=== PATIENT | female | born 1980 | race Two or more races ===

== ENCOUNTER → 2020-01-05 08:54 | Outpatient (BNVA) | payer SELFPAY | PROVIDERS: Visit Provider Internal Medicine | DX: Z76.89 Persons encountering health services in other specified circumstances (principal) ==

== ENCOUNTER → 2020-12-19 13:10 | Outpatient (BNVA) | payer SELFPAY | PROVIDERS: Visit Provider Internal Medicine | DX: Z02.79 Encounter for issue of other medical certificate (principal) ==

== ENCOUNTER → 2022-01-02 11:15 | Outpatient (BNVA) | payer SELFPAY | PROVIDERS: Visit Provider Internal Medicine | DX: Z02.79 Encounter for issue of other medical certificate (principal) ==

== ENCOUNTER → 2023-01-13 10:02 | Outpatient (BNVA) | payer SELFPAY | PROVIDERS: Visit Provider Physician Assistant | DX: Z02.79 Encounter for issue of other medical certificate (principal) ==

== ENCOUNTER 2024-09-12 10:48 | Outpatient (AMB) | payer OTHER, SELFPAY ==
--- NOTE | 2024-09-12 10:49 | MHC.OFFVIS ---
Vital Signs 09/12/24 10:58 Height 5 ft 6 in Weight 261 lb BMI 42.1 BP 166/79 H Blood Pressure Location Rt brachial Position Sitting Pulse 82 Intake Visit Reasons: large neck lipoma Intake Note: Patient referred by pcp Dr. Salomón Robles for large lipoma on Lt side of neck. Present for 1yr. Patient c/o: on and off tenderness. No prior trauma. 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 She feels this has been present for many years starting as a small lump which has gradually increased in size and now become more noticeable. The lesion is located just above the hairline in the midline neck. She denies any significant pain, redness or discharge from the site. She does have some discomfort when moving her neck however possibly related to this lesion. She underwent evaluation with an ultrasound of the soft tissue, the results of which are not available at the time of this examination. She is requesting excision of this lesion. [facility] Medical History (Updated 09/12/24 @ 11:15 by Tom Hayes MD) Pilar cyst of scalp High blood pressure High cholesterol Surgical History (Updated 09/12/24 @ 10:57 by EDUARDO Jimenez) Hx laparoscopic cholecystectomy Social History (System 01/28/23 @ 14:50 by Seema Cano) Alcohol intake: current Alcohol intake frequency: holidays/special occasions only Patient Tobacco Use Status: Never used Tobacco Review of Systems Const All systems reviewed & are unremarkable except as noted in HPI and below Physical Exam Const General: cooperative and no acute distress Nutritional Appearance: well nourished Orientation/consciousness: patient oriented x3 Limitations: no limitations HEENT Head: Yes normocephalic and Yes atraumatic Ears: hearing grossly normal bilaterally Neck Neck images: 1. Large round approximately 8 cm diameter, firm to the touch more suggestive of a Pilar cyst rather than a lipoma. No overlying skin changes appreciated. Lesion is mobile within the subcutaneous tissue. Resp Effort & Inspection: normal respiratory effort, no audible wheezes, no cough and no respiratory distress Cardio Jugular venous distension: no JVD GI Inspection: Yes normal to inspection Skin Other: Warm, dry, no rash Neuro General: patient oriented x3 Extrem General: Yes no clubbing, cyanosis or edema Assessment & Plan Assessment & Plan (1) Pilar cyst of scalp: Code(s): L72.11 - Pilar cyst Category: Medical Plan 44-year-old female patient presenting with a mass in the posterior neck which on examination appears to be a Pilar cyst. I recommended an excision of this Pilar cyst as a minor surgery under local anesthesia. After discussion of the procedure, risks, and alternatives, she consents to the excision. She will be scheduled earliest convenience. Coding Level of Care Code New Pt Level 4 (61180) Diagnoses Pilar cyst of scalp L72.11
[2024-09-12 10:58] VITALS: BP 166/79; PULSE 82; BMI 42.1
--- OUTSIDE RECORDS SUMMARY | 2024-09-12 12:16 | XMS_ITS | Patient Health Record ---
Author Organization [employer] [facility] Address [address] [place] [address] Care Team Providers Care Fire Control Technician B Name Role Phone LINCOLN SANDRA Primary Care Provider Margaret Lorenzana Unavailable [phone] Ema Dixon Unavailable [phone] Allergies No Known Allergies Results Component Value Reference Range Notes Comp. Metabolic Panel [id number] Reviewed date:08/02/2024 07:32:09 AM Interpretation: Performing Lab:[facility], [address] [facility], Phone - [phone], Director - MDJodry Notes/Report: Glucose 93 70-99 mg/dL BUN 17 6-24 mg/dL Creatinine 0.54 0.57-1.00 mg/dL eGFR 116 >59 mL/min/1.73 BUN/Creatinine Ratio 31 9-23 Sodium 140 134-144 mmol/L Potassium 4.6 3.5-5.2 mmol/L Chloride 102 96-106 mmol/L Carbon Dioxide, Total 19 20-29 mmol/L Calcium 9.5 8.7-10.2 mg/dL Protein, Total 6.7 6.0-8.5 g/dL Albumin 4.3 3.9-4.9 g/dL Globulin, Total 2.4 1.5-4.5 g/dL Bilirubin, Total 0.7 0.0-1.2 mg/dL Alkaline Phosphatase 135 44-121 IU/L AST (SGOT) 60 0-40 IU/L Lipid Panel With LDL/HDL Rat [id number] Reviewed date:08/02/2024 07:31:47 AM Interpretation: Performing Lab:[facility], [address], [place], Phone - [phone], Director - MDJodry Notes/Report: Cholesterol, Total 298 100-199 mg/dL Triglycerides 413 0-149 mg/dL HDL Cholesterol 41 >39 mg/dL VLDL Cholesterol Michael 82 5-40 mg/dL LDL Chol Calc ([facility]) 175 0-99 mg/dL LDL Calc Comment: Consider evaluating for Familial Hypercholesterolemia(FH), if clinically indicated. LDL/HDL Ratio 4.3 0.0-3.2 ratio LDL/HDL Ratio Men Women 1/2 Avg.Risk 1.0 1.5 Avg.Risk 3.6 3.2 2X Avg.Risk 6.2 5.0 3X Avg.Risk 8.0 6.1 Albumin/Creatinine Ratio,Uri [id number] Reviewed date:08/02/2024 07:32:03 AM Interpretation: Performing Lab:[facility], [address] [place] [address], [place], Phone - [phone], Director - MDJodry Notes/Report: Creatinine, Urine 229.9 Not Estab. mg/dL Albumin, Urine 25.8 Not Estab. ug/mL Alb/Creat Ratio 11 0-29 mg/g creat Normal: 0 - 29 Moderately increased: 30 - 300 Severely increased: >300 CBC with Diff, Platelet, NLR [id number] Reviewed date:08/02/2024 07:31:54 AM Interpretation: Performing Lab:[facility], [address] [facility], [place], Phone - [phone], Director - MDJoy Notes/Report: WBC 6.2 3.4-10.8 x10E3/uL RBC 4.27 3.77-5.28 x10E6/uL Hemoglobin 13.0 11.1-15.9 g/dL Hematocrit 39.7 34.0-46.6 % MCV 93 79-97 fL MCH 30.4 26.6-33.0 pg MCHC 32.7 31.5-35.7 g/dL RDW 13.3 11.7-15.4 % Platelets 409 150-450 x10E3/uL Neutrophils 50 Not Estab. % Lymphs 38 Not Estab. % Monocytes 10 Not Estab. % Eos 1 Not Estab. % Basos 1 Not Estab. % Neutrophils (Absolute) 3.1 1.4-7.0 x10E3/uL Lymphs (Absolute) 2.4 0.7-3.1 x10E3/uL Neut/Lymph Ratio 1.3 0.0-2.9 ratio Published COVID-19 studies suggest: Low likelihood of severe COVID-19 disease progression 0.0-2.9 High likelihood of severe COVID-19 disease progression >4.9 Monocytes(Absolute) 0.6 0.1-0.9 x10E3/uL Eos (Absolute) 0.1 0.0-0.4 x10E3/uL Baso (Absolute) 0.1 0.0-0.2 x10E3/uL Immature Granulocytes 0 Not Estab. % Immature Grans (Abs) 0.0 0.0-0.1 x10E3/uL Reason For Referral Reason Pap smear screening, premenopausal symptoms Please evaluate and treat Diagnosis 1 Unspecified abnormal cytological findings in specimens from cervix uteri (R87.619) Diagnosis 2 Unspecified menopaus al and perimenopausal disorder (N95.9) Referral Organization [facility] Referring Provider First Name Margaret Referring Provider Last Name Salomón Referring Provider Speciality [facility] Referred Provider Specialty Data Transcriber General Notes Please call the farooq ent to schedule the appointment, [facility] General Accounting Clerk- [phone] Charmain 08/07/2024 04:22:45 PM > Referral Priority Routine Reason large neck lipoma Please evaluate and treat Diagnosis 1 Localized swelling, mass and lump, neck (R22.1) Referral Organization [facility] Referring Provider First Name Margaret Referring Provider Last Name Salomón Referring Provider Speciality Internal edicine Referred Provider Specialty Surgery General Notes Please call the farooq ent to schedule the appointment, [facility] General Surgery. Please contact them at [phone], Kanwal Ramirez 08/07/2024 04:16:02 PM > Referral Priority Routine Reason snoring and daytime fatigue Diagnosis 1 Snoring (R06.83) Diagnosis 2 Somnolence (R40.0) Referral Organization [facility] Referring Provider First Name LINCOLN Referring Provider Last Name JOCY Referring Provider Speciality Internal edicine Referred Provider Specialty Sleep Medici ne General Notes Please call the farooq ent to schedule the appointment, [facility]. Please contact them at [phone] Charmain 08/17/2024 04:38:30 PM > Referral Priority Routine Medications Medication SIG (Take, Route, Frequency, Duration) Notes Start Date End Date Status amLODIPine Besylate 2.5 MG 1 tablet Oral ly Once a day for 30 days 08/17/2024 Active Atorvastatin Calcium 20 MG 1 tablet Oral ly Once a day for 30 days 08/01/2024 Active Problems Problem Type SNOMED Code ICD Code Onset Dates Problem Status W/U Status Risk Notes Problem Morbid obesity (disorder) (008124795) Morbid (severe) obesity due to excess calories (E66.01) Active confirmed Problem Mixed hyperlipidemia (364725236) Mixed hyperlipidemia (E78.2) Active confirmed Problem Hyperlipidemia (58829359) Hyperlipidemia, unspecified (E78.5) Active confirmed Problem Fatty liver (940392698) Fatty (change of) liver, not elsewhere classified (K76.0) Active confirmed Problem Unspecified menopausal and perimenopausal disorder (N95.9) Active confirmed Problem Somnolence (21381826) Somnolence (R40.0) Active confirmed Problem Essential hypertension (08567484) HTN (hypertension), benign (I10) Active confirmed Vital Signs Heart Rate 98 /min 08/17/2024 Temperature 96.5 degrees Fahrenheit 08/17/2024 Oximetry 97 % 08/17/2024 Blood pressure diastolic 100 mm Hg 08/17/2024 Height 5'6'' in 08/17/2024 Blood pressure systolic 140 mm Hg 08/17/2024 Weight 262.4 lbs 08/17/2024 BMI 42.35 kg/m2 08/17/2024 Encounters Encounter Location Date Provider Diagnosis [address] [address] 07/31/2024 [place] Hyperlipidemia, unspecified E78.5 ; HTN (hypertension), benign I10 ; Localized swelling, mass and lump, neck R22.1 and Chest pain on breathing R07.[address] [address] 08/17/2024 [facility] TANISHACharlie Morbid (severe) obes ity due to excess calories E66.01 ; Dietary counseling and surveillance Z71.3 ; Mixed hyperlipidemia E78.2 ; Fatty (change of) liver, not elsewhere classified K76.0 ; HTN (hypertension), benign I10 and Strain of muscle, fascia and tendon of lower back, initial encounter S39.012A [address] [place] [address] 08/01/2024 LINCOLN SANDRA Hyperlipidemia, unspecified E78.[address] [place] [address] 08/11/[address] [address] [place] [address] 08/11/[address] [place] [address] 08/18/[address] [address] 08/24/2024 [place] Alam [address] [address] 08/25/2024 Ema Dixon [address] [address] 08/28/2024 [place] Chest pain on breath ing R07.1 and Shortness of breath R06.[address] [address] 09/06/2024 LINCOLN SANDRA Assessments Encounter Date Diagnosis (ICD Code) Assessment Notes Treatment Notes Treatment Clinical Notes Section Notes 08/01/2024 Hyperlipidemia, unspecified (ICD-10 - E78.5) 08/17/2024 Morbid (severe) obesity due to excess calories (ICD-10 - E66.01) Isabel is 44 years old lady who is here for medical weight management. We reviewed her blood work and she has mixed hyperlipidemia, elevated AST. Her blood pressure was also high in the office today. She also mentioned that she snores at night and complained of daytime sleepiness. Hypertension. Blood pressure running high in the office and she started on amlodipine 2.5 mg daily and a low sodium diet recommended. Mixed hyperlipidemia. Advised to take atorvastatin 20 mg daily at bedtime and repeat lipid panel in 6-12 weeks. Snoring. She scored 5 on [employer] sleep apnea screening tool. She is given referral to sleep medicine. Complications of sleep apnea discussed with the patient. Diet recommendation. Different dietary modalities discussed with the patient. She was advised to restrict her calories to less than 1500 kcal in 24 hours. Portion control recommended. Low glycemic index foods explained and education material given. Information on Numetra discussed. Mediterranean diet, keto diet, low carbohydrate diet explained and discussed with the patient. Patient advised to download applications for calorie counting. Patient was also advised to use [id number] vitamin D3 supplements and multivitamins. Pharmacotherapy. Patient will discuss with her insurance company regarding pharmacotherapy before re-proceed. Different medications and their side effects discussed with the patient. She will benefit from pharmacotherapy especially GLP-1 considering history of new onset hypertension Exercise. Patient encouraged to To do regular exercise. Encouraged to do aerobic and anaerobic exercises at least 3-4 days a week. Goal is to burn at least 250-500 in One session Behavioral therapy. Importance of behavioral health and weight management discussed with the patient. CBT and motivational interviewing will benefit the patient. If needed will do a referral to a psychologist/psych iatrist. Bariatric surgery. Different procedures discussed with the patient but patient is not interested at this point Screening blood work reviewed Assessed. The patient was assessed and patient does not have any behavioral risk or factors affecting goals of therapy Advised. Patient was given a personalized plan regarding the goals and pros and cons of the treatment Agreed. Collaboratively picked up a treatment plan and patient agreed with the plan Assisted. Patient is assisted in achieving goals. Arrange. Schedule follow-up with the patient to provide ongoing assistance and support and to review the management and treatment plan. Counseling. A total of 60 minutes spent with the patient and more than 50% of time was spent with the patient counseling and educating on different diets, side effects of different medications, pros and cons of medical and surgical weight management, importance of exercise and weight loss and psych intervention for weight loss. 07/31/2024 Hyperlipidemia, unspecified (ICD-10 - E78.5) 44-year-old lady with no known medical history, obesity is here today to establish a new PCP. Hypertension screening will check basic metabolic panel she is not on any medication blood pressure is 124/84 Hyperlipidemia screening check a lipid profile Obesity class III, patient gained almost 60 pounds in the last year, we will check lab work, will make an appointment for weight loss and medication review/weight management Pleuritic chest pain, patient reports mostly back pain while taking a deep breath. She had a chest x-ray a few months ago which was unremarkable. Will get a CT of the chest to rule out any infiltrate or pleural effusion. Premenopausal symptoms, was referred to OPERATIONS RESEARCH MANAGER for further evaluation and also to get a Pap smear check Neck mass large 4-5 cm palpable mass in the base of the left side of the neck nontender most likely lipoma will get an ultrasound and referred to a surgeon as patient reports it is causing discomfort 08/17/2024 Dietary counseling and surveillance (ICD-10 - Z71.3) Isabel is 44 years old lady who is here for medical weight management. We reviewed her blood work and she has mixed hyperlipidemia, elevated AST. Her blood pressure was also high in the office today. She also mentioned that she snores at night and complained of daytime sleepiness. Hypertension. Blood pressure running high in the office and she started on amlodipine 2.5 mg daily and a low sodium diet recommended. Mixed hyperlipidemia. Advised to take atorvastatin 20 mg daily at bedtime and repeat lipid panel in 6-12 weeks. Snoring. She scored 5 on [employer] sleep apnea screening tool. She is given referral to sleep medicine. Complications of sleep apnea discussed with the patient. Diet recommendation. Different dietary modalities discussed with the patient. She was advised to restrict her calories to less than 1500 kcal in 24 hours. Portion control recommended. Low glycemic index foods explained and education material given. Information on Numetra discussed. Mediterranean diet, keto diet, low carbohydrate diet explained and discussed with the patient. Patient advised to download applications for calorie counting. Patient was also advised to use [id number]-[id number] vitamin D3 supplements and multivitamins. Pharmacotherapy. Patient will discuss with her insurance company regarding pharmacotherapy before re-proceed. Different medications and their side effects discussed with the patient. She will benefit from pharmacotherapy especially GLP-1 considering history of new onset hypertension Exercise. Patient encouraged to To do regular exercise. Encouraged to do aerobic and anaerobic exercises at least 3-4 days a week. Goal is to burn at least 250-500 in One session Behavioral therapy. Importance of behavioral health and weight management discussed with the patient. CBT and motivational interviewing will benefit the patient. If needed will do a referral to a psychologist/psych iatrist. Bariatric surgery. Different procedures discussed with the patient but patient is not interested at this point Screening blood work reviewed Assessed. The patient was assessed and patient does not have any behavioral risk or factors affecting goals of therapy Advised. Patient was given a personalized plan regarding the goals and pros and cons of the treatment Agreed. Collaboratively picked up a treatment plan and patient agreed with the plan Assisted. Patient is assisted in achieving goals. Arrange. Schedule follow-up with the patient to provide ongoing assistance and support and to review the management and treatment plan. Counseling. A total of 60 minutes spent with the patient and more than 50% of time was spent with the patient counseling and educating on different diets, side effects of different medications, pros and cons of medical and surgical weight management, importance of exercise and weight loss and psych intervention for weight loss. 08/28/2024 Chest pain on breathing (ICD-10 - R07.1) 08/28/2024 Shortness of breath (ICD-10 - R06.02) 07/31/2024 HTN (hypertension), benign (ICD-10 - I10) 44-year-old lady with no known medical history, obesity is here today to establish a new PCP. Hypertension screening will check basic metabolic panel she is not on any medication blood pressure is 124/84 Hyperlipidemia screening check a lipid profile Obesity class III, patient gained almost 60 pounds in the last year, we will check lab work, will make an appointment for weight loss and medication review/weight management Pleuritic chest pain, patient reports mostly back pain while taking a deep breath. She had a chest x-ray a few months ago which was unremarkable. Will get a CT of the chest to rule out any infiltrate or pleural effusion. Premenopausal symptoms, was referred to OPERATIONS RESEARCH MANAGER for further evaluation and also to get a Pap smear check Neck mass large 4-5 cm palpable mass in the base of the left side of the neck nontender most likely lipoma will get an ultrasound and referred to a surgeon as patient reports it is causing discomfort 08/17/2024 Mixed hyperlipidemia (ICD-10 - E78.2) Isabel is 44 years old lady who is here for medical weight management. We reviewed her blood work and she has mixed hyperlipidemia, elevated AST. Her blood pressure was also high in the office today. She also mentioned that she snores at night and complained of daytime sleepiness. Hypertension. Blood pressure running high in the office and she started on amlodipine 2.5 mg daily and a low sodium diet recommended. Mixed hyperlipidemia. Advised to take atorvastatin 20 mg daily at bedtime and repeat lipid panel in 6-12 weeks. Snoring. She scored 5 on [employer] sleep apnea screening tool. She is given referral to sleep medicine. Complications of sleep apnea discussed with the patient. Diet recommendation. Different dietary modalities discussed with the patient. She was advised to restrict her calories to less than 1500 kcal in 24 hours. Portion control recommended. Low glycemic index foods explained and education material given. Information on Numetra discussed. Mediterranean diet, keto diet, low carbohydrate diet explained and discussed with the patient. Patient advised to download applications for calorie counting. Patient was also advised to use tfiq-onr-[id number] vitamin D3 supplements and multivitamins. Pharmacotherapy. Patient will discuss with her insurance company regarding pharmacotherapy before re-proceed. Different medications and their side effects discussed with the patient. She will benefit from pharmacotherapy especially GLP-1 considering history of new onset hypertension Exercise. Patient encouraged to To do regular exercise. Encouraged to do aerobic and anaerobic exercises at least 3-4 days a week. Goal is to burn at least 250-500 in One session Behavioral therapy. Importance of behavioral health and weight management discussed with the patient. CBT and motivational interviewing will benefit the patient. If needed will do a referral to a psychologist/psych iatrist. Bariatric surgery. Different procedures discussed with the patient but patient is not interested at this point Screening blood work reviewed Assessed. The patient was assessed and patient does not have any behavioral risk or factors affecting goals of therapy Advised. Patient was given a personalized plan regarding the goals and pros and cons of the treatment Agreed. Collaboratively picked up a treatment plan and patient agreed with the plan Assisted. Patient is assisted in achieving goals. Arrange. Schedule follow-up with the patient to provide ongoing assistance and support and to review the management and treatment plan. Counseling. A total of 60 minutes spent with the patient and more than 50% of time was spent with the patient counseling and educating on different diets, side effects of different medications, pros and cons of medical and surgical weight management, importance of exercise and weight loss and psych intervention for weight loss. 08/17/2024 Fatty (change of) liver, not elsewhere classified (ICD-10 - K76.0) Isabel is 44 years old lady who is here for medical weight management. We reviewed her blood work and she has mixed hyperlipidemia, elevated AST. Her blood pressure was also high in the office today. She also mentioned that she snores at night and complained of daytime sleepiness. Hypertension. Blood pressure running high in the office and she started on amlodipine 2.5 mg daily and a low sodium diet recommended. Mixed hyperlipidemia. Advised to take atorvastatin 20 mg daily at bedtime and repeat lipid panel in 6-12 weeks. Snoring. She scored 5 on [employer] sleep apnea screening tool. She is given referral to sleep medicine. Complications of sleep apnea discussed with the patient. Diet recommendation. Different dietary modalities discussed with the patient. She was advised to restrict her calories to less than 1500 kcal in 24 hours. Portion control recommended. Low glycemic index foods explained and education material given. Information on Numetra discussed. Mediterranean diet, keto diet, low carbohydrate diet explained and discussed with the patient. Patient advised to download applications for calorie counting. Patient was also advised to use zjmh-sux-dlietsb vitamin D3 supplements and multivitamins. Pharmacotherapy. Patient will discuss with her insurance company regarding pharmacotherapy before re-proceed. Different medications and their side effects discussed with the patient. She will benefit from pharmacotherapy especially GLP-1 considering history of new onset hypertension Exercise. Patient encouraged to To do regular exercise. Encouraged to do aerobic and anaerobic exercises at least 3-4 days a week. Goal is to burn at least 250-500 in One session Behavioral therapy. Importance of behavioral health and weight management discussed with the patient. CBT and motivational interviewing will benefit the patient. If needed will do a referral to a psychologist/psych iatrist. Bariatric surgery. Different procedures discussed with the patient but patient is not interested at this point Screening blood work reviewed Assessed. The patient was assessed and patient does not have any behavioral risk or factors affecting goals of therapy Advised. Patient was given a personalized plan regarding the goals and pros and cons of the treatment Agreed. Collaboratively picked up a treatment plan and patient agreed with the plan Assisted. Patient is assisted in achieving goals. Arrange. Schedule follow-up with the patient to provide ongoing assistance and support and to review the management and treatment plan. Counseling. A total of 60 minutes spent with the patient and more than 50% of time was spent with the patient counseling and educating on different diets, side effects of different medications, pros and cons of medical and surgical weight management, importance of exercise and weight loss and psych intervention for weight loss. 07/31/2024 Localized swelling, mass and lump, neck (ICD-10 - R22.1) 44-year-old lady with no known medical history, obesity is here today to establish a new PCP. Hypertension screening will check basic metabolic panel she is not on any medication blood pressure is 124/84 Hyperlipidemia screening check a lipid profile Obesity class III, patient gained almost 60 pounds in the last year, we will check lab work, will make an appointment for weight loss and medication review/weight management Pleuritic chest pain, patient reports mostly back pain while taking a deep breath. She had a chest x-ray a few months ago which was unremarkable. Will get a CT of the chest to rule out any infiltrate or pleural effusion. Premenopausal symptoms, was referred to OPERATIONS RESEARCH MANAGER for further evaluation and also to get a Pap smear check Neck mass large 4-5 cm palpable mass in the base of the left side of the neck nontender most likely lipoma will get an ultrasound and referred to a surgeon as patient reports it is causing discomfort 07/31/2024 Chest pain on breathing (ICD-10 - R07.1) 44-year-old lady with no known medical history, obesity is here today to establish a new PCP. Hypertension screening will check basic metabolic panel she is not on any medication blood pressure is 124/84 Hyperlipidemia screening check a lipid profile Obesity class III, patient gained almost 60 pounds in the last year, we will check lab work, will make an appointment for weight loss and medication review/weight management Pleuritic chest pain, patient reports mostly back pain while taking a deep breath. She had a chest x-ray a few months ago which was unremarkable. Will get a CT of the chest to rule out any infiltrate or pleural effusion. Premenopausal symptoms, was referred to OPERATIONS RESEARCH MANAGER for further evaluation and also to get a Pap smear check Neck mass large 4-5 cm palpable mass in the base of the left side of the neck nontender most likely lipoma will get an ultrasound and referred to a surgeon as patient reports it is causing discomfort 08/17/2024 HTN (hypertension), benign (ICD-10 - I10) Isabel is 44 years old lady who is here for medical weight management. We reviewed her blood work and she has mixed hyperlipidemia, elevated AST. Her blood pressure was also high in the office today. She also mentioned that she snores at night and complained of daytime sleepiness. Hypertension. Blood pressure running high in the office and she started on amlodipine 2.5 mg daily and a low sodium diet recommended. Mixed hyperlipidemia. Advised to take atorvastatin 20 mg daily at bedtime and repeat lipid panel in 6-12 weeks. Snoring. She scored 5 on [employer] sleep apnea screening tool. She is given referral to sleep medicine. Complications of sleep apnea discussed with the patient. Diet recommendation. Different dietary modalities discussed with the patient. She was advised to restrict her calories to less than 1500 kcal in 24 hours. Portion control recommended. Low glycemic index foods explained and education material given. Information on Numetra discussed. Mediterranean diet, keto diet, low carbohydrate diet explained and discussed with the patient. Patient advised to download applications for calorie counting. Patient was also advised to use [id number] vitamin D3 supplements and multivitamins. Pharmacotherapy. Patient will discuss with her insurance company regarding pharmacotherapy before re-proceed. Different medications and their side effects discussed with the patient. She will benefit from pharmacotherapy especially GLP-1 considering history of new onset hypertension Exercise. Patient encouraged to To do regular exercise. Encouraged to do aerobic and anaerobic exercises at least 3-4 days a week. Goal is to burn at least 250-500 in One session Behavioral therapy. Importance of behavioral health and weight management discussed with the patient. CBT and motivational interviewing will benefit the patient. If needed will do a referral to a psychologist/psych iatrist. Bariatric surgery. Different procedures discussed with the patient but patient is not interested at this point Screening blood work reviewed Assessed. The patient was assessed and patient does not have any behavioral risk or factors affecting goals of therapy Advised. Patient was given a personalized plan regarding the goals and pros and cons of the treatment Agreed. Collaboratively picked up a treatment plan and patient agreed with the plan Assisted. Patient is assisted in achieving goals. Arrange. Schedule follow-up with the patient to provide ongoing assistance and support and to review the management and treatment plan. Counseling. A total of 60 minutes spent with the patient and more than 50% of time was spent with the patient counseling and educating on different diets, side effects of different medications, pros and cons of medical and surgical weight management, importance of exercise and weight loss and psych intervention for weight loss. 08/17/2024 Strain of muscle, fascia and tendon of lower back, initial encounter (ICD-10 - S39.012A) Isabel is 44 years old lady who is here for medical weight management. We reviewed her blood work and she has mixed hyperlipidemia, elevated AST. Her blood pressure was also high in the office today. She also mentioned that she snores at night and complained of daytime sleepiness. Hypertension. Blood pressure running high in the office and she started on amlodipine 2.5 mg daily and a low sodium diet recommended. Mixed hyperlipidemia. Advised to take atorvastatin 20 mg daily at bedtime and repeat lipid panel in 6-12 weeks. Snoring. She scored 5 on [employer] sleep apnea screening tool. She is given referral to sleep medicine. Complications of sleep apnea discussed with the patient. Diet recommendation. Different dietary modalities discussed with the patient. She was advised to restrict her calories to less than 1500 kcal in 24 hours. Portion control recommended. Low glycemic index foods explained and education material given. Information on Numetra discussed. Mediterranean diet, keto diet, low carbohydrate diet explained and discussed with the patient. Patient advised to download applications for calorie counting. Patient was also advised to use [id number] vitamin D3 supplements and multivitamins. Pharmacotherapy. Patient will discuss with her insurance company regarding pharmacotherapy before re-proceed. Different medications and their side effects discussed with the patient. She will benefit from pharmacotherapy especially GLP-1 considering history of new onset hypertension Exercise. Patient encouraged to To do regular exercise. Encouraged to do aerobic and anaerobic exercises at least 3-4 days a week. Goal is to burn at least 250-500 in One session Behavioral therapy. Importance of behavioral health and weight management discussed with the patient. CBT and motivational interviewing will benefit the patient. If needed will do a referral to a psychologist/psych iatrist. Bariatric surgery. Different procedures discussed with the patient but patient is not interested at this point Screening blood work reviewed Assessed. The patient was assessed and patient does not have any behavioral risk or factors affecting goals of therapy Advised. Patient was given a personalized plan regarding the goals and pros and cons of the treatment Agreed. Collaboratively picked up a treatment plan and patient agreed with the plan Assisted. Patient is assisted in achieving goals. Arrange. Schedule follow-up with the patient to provide ongoing assistance and support and to review the management and treatment plan. Counseling. A total of 60 minutes spent with the patient and more than 50% of time was spent with the patient counseling and educating on different diets, side effects of different medications, pros and cons of medical and surgical weight management, importance of exercise and weight loss and psych intervention for weight loss. Plan Of Treatment Pending Test Test Name Order Date X ray : Chest 08/28/2024 X ray : Thoracic and lumbar 08/17/2024 CT Chest WO 07/31/2024 US Soft Tissue Head Neck 07/31/2024 Next Appt Details Provider Name:Ema Fuentesmisty sawyer, 09/22/2024 01:00:00 PM, [address] [address], [place], [address], Provider Name:LINCOLN SANDRA , 09/28/2024 01:45:00 PM, [address] [place] [address] [id number], [place], [address], Insurance Providers Payer Name Payer Address Payer Phone Subscriber Number Group Number Insured Name Patient Relationship to Insured Coverage Start Date Coverage End [facility] [address] [place] [phone] [id number] Isabel Ray Self - patient is the insured Medical (General) History Medical History History ICD Code none Surgical History Surgery Date(Month/Year) status post cholecystectomy
== END 2024-09-12 11:19 | disposition home or self-care (01) ==
LOC: HO.HGS 10:49
PROVIDERS: PCP Internal Medicine; Visit Provider Surgery
DX: L72.11 Pilar cyst (principal)
CPT/HCPCS: 99204

== ENCOUNTER 2024-09-26 11:25 | Outpatient (REF) | payer OTHER, SELFPAY ==
[2024-09-26 11:33] VITALS: BP 154/77; PULSE 75; RESP 20; O2SAT 97
[2024-09-26 12:06] VITALS: BP 154/94; PULSE 82; RESP 20; O2SAT 97
--- NOTE | 2024-09-26 12:21 | W.PM.OPN ---
Operative Note Operative Note Date of Service: 09/26/24 Narrative: Preoperative diagnosis: Pilar cyst posterior neck Postoperative diagnosis: Epidermal inclusion cyst posterior neck Procedure: Excision of epidermal inclusion cyst posterior neck Surgeon: Tom Hayes MD Senior Research Project Manager: None Anesthesia: Lidocaine 1% with epinephrine Indications for procedure: 44-year-old female patient presenting with an enlarging cyst in the posterior neck measuring approximately 3.5 cm in diameter. She denies any previous history of infection or discharge Operative findings: 3.5 cm sebaceous cyst posterior neck at the hairline Specimen: Sebaceous cyst posterior neck Estimated blood loss: 2 mL Complications: None Procedure details: Patient was brought to the minor surgery suite and placed in a prone position. The site of surgery was confirmed by the patient in the posterior neck. After assuring informed consent the skin was prepped with Betadine and draped in a sterile fashion. Local anesthesia was then infiltrated circumferentially around the sebaceous cyst. An elliptical incision was then created include a central punctum and carried into the subcutaneous tissue. Sharp dissection with a Metzenbaum scissors was then used to dissect the cyst from the surrounding subcutaneous tissue. The cyst was completely excised and passed off the table. This was then sent to pathology for further examination. Light pressure was held to maintain hemostasis. Skin was then closed using interrupted 3-0 Prolene sutures. Bacitracin was then applied. The patient tolerated the procedure well. She was discharged to home in stable condition.
--- OUTSIDE RECORDS SUMMARY | 2024-09-26 12:40 | XMS_ITS | Patient Health Record ---
Author Organization [facility] Address [address] [place] [address] Care Team Providers Care Varnish Finisher Name Role Phone LINCOLN SANDRA Primary Care Provider [phone] Margaret Lorenzana Unavailable [phone] Ema Dixon Unavailable [phone] Allergies No Known Allergies Results Component Value Reference Range Notes Comp. Metabolic Panel [id number] Reviewed date:08/02/2024 07:32:09 AM Interpretation: Performing Lab:[facility], [address] [facility], Phone - [phone], Director - MDJodry Notes/Report: Glucose 93 70-99 [...] 0-40 IU/L Lipid Panel With LDL/HDL Rat [id number] Reviewed date:08/02/2024 07:31:47 AM Interpretation: Performing Lab:[facility], [address] [place], [place], Phone - [phone], Director - MDJodry Notes/Report: Cholesterol, Total 298 100-199 mg/dL Triglycerides 413 0-149 mg/dL HDL Cholesterol 41 >39 mg/dL VLDL Cholesterol Michael 82 5-40 mg/dL LDL Chol Calc ([facility]) 175 0-99 mg/dL LDL Calc Comment: Consider evaluating for Familial Hypercholesterolemia(FH), if clinically indicated. LDL/HDL Ratio 4.3 0.0-3.2 ratio LDL/HDL Ratio Men Women 1/2 Avg.Risk 1.0 1.5 Avg.Risk 3.6 3.2 2X Avg.Risk 6.2 5.0 3X Avg.Risk 8.0 6.1 Albumin/Creatinine Ratio,Uri [id number] Reviewed date:08/02/2024 07:32:03 AM Interpretation: Performing Lab:[facility], [address] [place] [address], [place], Phone - [phone], Director - MDJodry Notes/Report: Creatinine, Urine 229.9 Not Estab. mg/dL Albumin, Urine 25.8 Not Estab. ug/mL Alb/Creat Ratio 11 0-29 mg/g creat Normal: 0 - 29 Moderately increased: 30 - 300 Severely increased: >300 CBC with Diff, Platelet, NLR [id number] Reviewed date:08/02/2024 07:31:54 AM Interpretation: Performing Lab:[facility], [address] [facility], [place], Phone - [phone], Director - MDJoy Notes/Report: WBC 6.2 3.4-10.8 [...] al and perimenopausal disorder (N95.9) Referral Organization [facility] Referring Provider First Name Margaret Referring Provider Last Name Salomón Referring Provider [facility]ity [facility] Referred Provider Specialty Public Relations Supervisor General Notes Please call the farooq ent to schedule the appointment, [facility] [employer]orer- [phone] Charmain 08/07/2024 04:22:45 PM > Referral Priority Routine Reason large neck lipoma Please evaluate and treat Diagnosis 1 Localized swelling, mass and lump, neck (R22.1) Referral Organization [facility] Referring Provider First Name Margaret Referring Provider Last Name Salomón Referring Provider Speciality Internal edicine Referred Provider Specialty Surgery General Notes Please call the farooq ent to schedule the appointment, [facility] General Surgery. Please contact them at [phone], Kanwal Ramirez 08/07/2024 04:16:02 PM > Referral Priority Routine Reason snoring and daytime fatigue Diagnosis 1 Snoring (R06.83) Diagnosis 2 Somnolence (R40.0) Referral Organization [facility] Referring Provider First Name LINCOLN Referring Provider Last Name JOCY Referring Provider Speciality Internal edicine Referred Provider Specialty Sleep Medici ne General Notes Please call the farooq ent to schedule the appointment, [facility]. Please contact them at [phone] Charmain 08/17/2024 04:38:30 PM > Referral Priority Routine Reason STOP BANG of 5, Epwo rth score of 12 Please evaluate and treat Diagnosis 1 Fatigue, unspecified type (R53.83) Referral Organization [facility] Referring Provider First Name Ema Referring Provider Last Name Destiny Referred Provider Specialty Sleep Medici ne General Notes Please call the farooq ent to schedule the appointment, Encounter created and SMS sent to the pt.JamesSengin 09/25/2024 04:02:41 PM > Referral Priority Routine Medications Medication SIG (Take, Route, Frequency, Duration) Notes Start Date End Date Status Ezetimibe 10 MG 1 tablet Orally Once a day; Duration: 90 days 09/22/2024 Active Atorvastatin Calcium 20 MG 1 tablet Oral ly Once a day; Duration: 30 days 08/01/2024 Active amLODIPine Besylate 2.5 MG 1 tablet Oral ly Once a day; Duration: 30 days 08/17/2024 Active Problems Problem Type SNOMED Code ICD Code Onset Dates Problem Status W/U Status Risk Notes Problem Morbid obesity (disorder) (774180893) Morbid (severe) obesity due to excess calories (E66.01) Active confirmed Problem Mixed hyperlipidemia (906143799) Mixed hyperlipidemia (E78.2) Active confirmed Problem Hyperlipidemia (37855142) Hyperlipidemia, unspecified (E78.5) Active confirmed Problem Fatty liver (832847678) Fatty (change of) liver, not elsewhere classified (K76.0) Active confirmed Problem Unspecified menopausal and perimenopausal disorder (N95.9) Active confirmed Problem Somnolence (73341513) Somnolence (R40.0) Active confirmed Problem Essential hypertension (41986559) HTN (hypertension), benign (I10) Active confirmed Vital Signs Heart Rate 91 /min 09/22/2024 Temperature 96.0 degrees Fahrenheit 09/22/2024 Oximetry 96 % 09/22/2024 Blood pressure diastolic 70 mm Hg 09/22/2024 Height 5'6'' in 09/22/2024 Blood pressure systolic 120 mm Hg 09/22/2024 Weight 256.5 lbs 09/22/2024 BMI 41.4 kg/m2 09/22/2024 Encounters Encounter Location Date Provider Diagnosis [facility] [address] [place] [address] 09/22/2024 Ema Dixon Hyperlipidemia, unspecified E78.5 ; Annual visit for general adult medical examination without abnormal findings Z00.00 ; Elevation of levels of liver transaminase levels R74.01 ; HTN (hypertension), benign I10 ; Fatigue, unspecified type R53.83 and Encounter for screening mammogram for malignant neoplasm of breast Z12.[address] [place] [address] 07/31/2024 [place] Alam Hyperlipidemia, unspecified E78.5 ; HTN (hypertension), benign I10 ; Localized swelling, mass and lump, neck R22.1 and Chest pain on breathing R07.[address] [place] [address] 08/17/2024 STARK GUL Morbid (severe) obes ity due to excess calories E66.01 ; Dietary counseling and surveillance Z71.3 ; Mixed hyperlipidemia E78.2 ; Fatty (change of) liver, not elsewhere classified K76.0 ; HTN (hypertension), benign I10 and Strain of muscle, fascia and tendon of lower back, initial encounter S39.012A [address] [place] [address] 08/01/2024 STARK GUL Hyperlipidemia, unspecified E78.[address] [place] [address] 08/11/[address] [place] [address] 08/11/2024 STARK L [address] [place] [address] 08/18/2024 STARK L [address] [place] [address] 08/24/2024 [place] Alam [address] [place] [address] 08/25/2024 Ema Dixon [address] [place] [address] 08/28/2024 [place] Alam Chest pain on breath ing R07.1 and Shortness of breath R06.02 [facility] [address] [place] [address] 09/06/2024 LINCOLN SANDRA [facility] [address] [place] [address] 09/25/2024 LINCOLN SANDRA Assessments Encounter Date Diagnosis (ICD [...] counting. Patient was also advised to use pivh-unp-ecnzymt vitamin D3 supplements and multivitamins. Pharmacotherapy. Patient [...] needed will do a referral to a psychologist/psychi atrist. Bariatric surgery. Different procedures discussed with the [...] pleural effusion. Premenopausal symptoms, was referred to BISCUIT FACTORY WORKER for further evaluation and also to get [...] counting. Patient was also advised to use fqjg-zkn-jssjbit vitamin D3 supplements and multivitamins. Pharmacotherapy. Patient [...] needed will do a referral to a psychologist/psychi atrist. Bariatric surgery. Different procedures discussed with the [...] Chest pain on breathing (ICD-10 - R07.1) 09/22/2024 Hyperlipidemia, unspecified (ICD-10 - E78.5) Isabel is 44-year-old lady with no known medical history, obesity is here today for annual physical examination. Plan as follows: Hypertension. Blood pressure is well controlled. Continue on amlodipine 2.5 mg. Advised on reducing salt intake, increase hydration, weight loss and exercises have been discussed A recent comp and microalbumin are within normal limit. Normal kidney, liver function and electrolytes. She is on the right medications EKG is done in the office today with heart rate of 81bpm, No ST elevation or depression, no BBB. normal interval Hyperlipidemia. She was started recently on atorvastatin 20 mg and will start on Zetia for a concer of high triglyceride. Will repeat panel in 4-6 weeks. Diet modification discussed. Elevated ALT most likely in the setting of fatty liver disease but will obtain U/S of the liver. Morbid obesity: she lost 6lbs since the last visit. She recently had weight consultation, she will be checking with her insurance on medication coverage, a list of medication has been provided. She has an upcoming appt for [employer]. As for now, continue with diet modification and excercising. Fatigue: Recent CBC is normal. She admits to snoring and apneic episode. Whitetop score of 12, Stop BANG score of 5. Will refer to sleep medicine. Will also check for TSH and vitamin D. I have also discussed with patient that poor nutrition and lack of physical activity, lack of sleep, starting on a new antihypertensive medication also contribute to feeling fatigued. Vision Recommend to touch base with examiner of currency Dermatology. No suspicious lesions at this point Dental screening every 6 months Recent blood work has been reviewed with the patient and questions have been answered PHQ-9 of 12: Admits to anxiety related to work, however managed without pharmacotherapy. No SI. Screening for breast cancer: Ordered Mammogram. Declines vaccinations. General concerns have been discussed I have rendered the services for this patient under direct supervision of Dr. Sandra, who did not see the patient but was available upon request Premenopausal symptoms, was referred to BISCUIT FACTORY WORKER for further evaluation and also to get a Pap smear check 09/22/2024 Annual visit for general adult medical examination without abnormal findings (ICD-10 - Z00.00) Isabel is 44-year-old lady with no known medical history, obesity is here today for annual physical examination. Plan as follows: Hypertension. Blood pressure is well controlled. Continue on amlodipine 2.5 mg. Advised on reducing salt intake, increase hydration, weight loss and exercises have been discussed A recent comp and microalbumin are within normal limit. Normal kidney, liver function and electrolytes. She is on the right medications EKG is done in the office today with heart rate of 81bpm, No ST elevation or depression, no BBB. normal interval Hyperlipidemia. She was started recently on atorvastatin 20 mg and will start on Zetia for a concer of high triglyceride. Will repeat panel in 4-6 weeks. Diet modification discussed. Elevated ALT most likely in the setting of fatty liver disease but will obtain U/S of the liver. Morbid obesity: she lost 6lbs since the last visit. She recently had weight consultation, she will be checking with her insurance on medication coverage, a list of medication has been provided. She has an upcoming appt for WM. As for now, continue with diet modification and excercising. Fatigue: Recent CBC is normal. She admits to snoring and apneic episode. Whitetop score of 12, Stop BANG score of 5. Will refer to sleep medicine. Will also check for TSH and vitamin D. I have also discussed with patient that poor nutrition and lack of physical activity, lack of sleep, starting on a new antihypertensive medication also contribute to feeling fatigued. Vision Recommend to touch base with examiner of currency Dermatology. No suspicious lesions at this point Dental screening every 6 months Recent blood work has been reviewed with the patient and questions have been answered PHQ-9 of 12: Admits to anxiety related to work, however managed without pharmacotherapy. No SI. Screening for breast cancer: Ordered Mammogram. Declines vaccinations. General concerns have been discussed I have rendered the services for this patient under direct supervision of Dr. Sandra, who did not see the patient but was available upon request Premenopausal symptoms, was referred to BISCUIT FACTORY WORKER for further evaluation and also to get a Pap smear check 08/28/2024 Shortness of breath (ICD-10 - R06.02) 09/22/2024 Elevation of levels of liver transaminase levels (ICD-10 - R74.01) Isabel is 44-year-old lady with no known medical history, obesity is here today for annual physical examination. Plan as follows: Hypertension. Blood pressure is well controlled. Continue on amlodipine 2.5 mg. Advised on reducing salt intake, increase hydration, weight loss and exercises have been discussed A recent comp and microalbumin are within normal limit. Normal kidney, liver function and electrolytes. She is on the right medications EKG is done in the office today with heart rate of 81bpm, No ST elevation or depression, no BBB. normal interval Hyperlipidemia. She was started recently on atorvastatin 20 mg and will start on Zetia for a concer of high triglyceride. Will repeat panel in 4-6 weeks. Diet modification discussed. Elevated ALT most likely in the setting of fatty liver disease but will obtain U/S of the liver. Morbid obesity: she lost 6lbs since the last visit. She recently had weight consultation, she will be checking with her insurance on medication coverage, a list of medication has been provided. She has an upcoming appt for WM. As for now, continue with diet modification and excercising. Fatigue: Recent CBC is normal. She admits to snoring and apneic episode. Whitetop score of 12, Stop BANG score of 5. Will refer to sleep medicine. Will also check for TSH and vitamin D. I have also discussed with patient that poor nutrition and lack of physical activity, lack of sleep, starting on a new antihypertensive medication also contribute to feeling fatigued. Vision Recommend to touch base with examiner of currency Dermatology. No suspicious lesions at this point Dental screening every 6 months Recent blood work has been reviewed with the patient and questions have been answered PHQ-9 of 12: Admits to anxiety related to work, however managed without pharmacotherapy. No SI. Screening for breast cancer: Ordered Mammogram. Declines vaccinations. General concerns have been discussed I have rendered the services for this patient under direct supervision of Dr. Sandra, who did not see the patient but was available upon request Premenopausal symptoms, was referred to BISCUIT FACTORY WORKER for further evaluation and also to get a Pap smear check 07/31/2024 HTN (hypertension), benign (ICD-10 - I10) [...] pleural effusion. Premenopausal symptoms, was referred to BISCUIT FACTORY WORKER for further evaluation and also to get [...] counting. Patient was also advised to use ttkt-mvt-apzxqom vitamin D3 supplements and multivitamins. Pharmacotherapy. Patient [...] needed will do a referral to a psychologist/psychi atrist. Bariatric surgery. Different procedures discussed with the [...] counting. Patient was also advised to use xztp-jut-lstuucl vitamin D3 supplements and multivitamins. Pharmacotherapy. Patient [...] needed will do a referral to a psychologist/psychi atrist. Bariatric surgery. Different procedures discussed with the [...] pleural effusion. Premenopausal symptoms, was referred to BISCUIT FACTORY WORKER for further evaluation and also to get a Pap smear check Neck mass large 4-5 cm palpable mass in the base of the left side of the neck nontender most likely lipoma will get an ultrasound and referred to a surgeon as patient reports it is causing discomfort 09/22/2024 HTN (hypertension), benign (ICD-10 - I10) Isabel is 44-year-old lady with no known medical history, obesity is here today for annual physical examination. Plan as follows: Hypertension. Blood pressure is well controlled. Continue on amlodipine 2.5 mg. Advised on reducing salt intake, increase hydration, weight loss and exercises have been discussed A recent comp and microalbumin are within normal limit. Normal kidney, liver function and electrolytes. She is on the right medications EKG is done in the office today with heart rate of 81bpm, No ST elevation or depression, no BBB. normal interval Hyperlipidemia. She was started recently on atorvastatin 20 mg and will start on Zetia for a concer of high triglyceride. Will repeat panel in 4-6 weeks. Diet modification discussed. Elevated ALT most likely in the setting of fatty liver disease but will obtain U/S of the liver. Morbid obesity: she lost 6lbs since the last visit. She recently had weight consultation, she will be checking with her insurance on medication coverage, a list of medication has been provided. She has an upcoming appt for WM. As for now, continue with diet modification and excercising. Fatigue: Recent CBC is normal. She admits to snoring and apneic episode. Whitetop score of 12, Stop BANG score of 5. Will refer to sleep medicine. Will also check for TSH and vitamin D. I have also discussed with patient that poor nutrition and lack of physical activity, lack of sleep, starting on a new antihypertensive medication also contribute to feeling fatigued. Vision Recommend to touch base with examiner of currency Dermatology. No suspicious lesions at this point Dental screening every 6 months Recent blood work has been reviewed with the patient and questions have been answered PHQ-9 of 12: Admits to anxiety related to work, however managed without pharmacotherapy. No SI. Screening for breast cancer: Ordered Mammogram. Declines vaccinations. General concerns have been discussed I have rendered the services for this patient under direct supervision of Dr. Sandra, who did not see the patient but was available upon request Premenopausal symptoms, was referred to BISCUIT FACTORY WORKER for further evaluation and also to get a Pap smear check 09/22/2024 Fatigue, unspecified type (ICD-10 - R53.83) Isabel is 44-year-old lady with no known medical history, obesity is here today for annual physical examination. Plan as follows: Hypertension. Blood pressure is well controlled. Continue on amlodipine 2.5 mg. Advised on reducing salt intake, increase hydration, weight loss and exercises have been discussed A recent comp and microalbumin are within normal limit. Normal kidney, liver function and electrolytes. She is on the right medications EKG is done in the office today with heart rate of 81bpm, No ST elevation or depression, no BBB. normal interval Hyperlipidemia. She was started recently on atorvastatin 20 mg and will start on Zetia for a concer of high triglyceride. Will repeat panel in 4-6 weeks. Diet modification discussed. Elevated ALT most likely in the setting of fatty liver disease but will obtain U/S of the liver. Morbid obesity: she lost 6lbs since the last visit. She recently had weight consultation, she will be checking with her insurance on medication coverage, a list of medication has been provided. She has an upcoming appt for WM. As for now, continue with diet modification and excercising. Fatigue: Recent CBC is normal. She admits to snoring and apneic episode. Whitetop score of 12, Stop BANG score of 5. Will refer to sleep medicine. Will also check for TSH and vitamin D. I have also discussed with patient that poor nutrition and lack of physical activity, lack of sleep, starting on a new antihypertensive medication also contribute to feeling fatigued. Vision Recommend to touch base with examiner of currency Dermatology. No suspicious lesions at this point Dental screening every 6 months Recent blood work has been reviewed with the patient and questions have been answered PHQ-9 of 12: Admits to anxiety related to work, however managed without pharmacotherapy. No SI. Screening for breast cancer: Ordered Mammogram. Declines vaccinations. General concerns have been discussed I have rendered the services for this patient under direct supervision of Dr. Sandra, who did not see the patient but was available upon request Premenopausal symptoms, was referred to BISCUIT FACTORY WORKER for further evaluation and also to get a Pap smear check 08/17/2024 HTN (hypertension), benign (ICD-10 - I10) [...] counting. Patient was also advised to use yhea-nsu-mpltpfp vitamin D3 supplements and multivitamins. Pharmacotherapy. Patient [...] needed will do a referral to a psychologist/psychi atrist. Bariatric surgery. Different procedures discussed with the [...] and psych intervention for weight loss. 07/31/2024 Chest pain on breathing (ICD-10 - [...] pleural effusion. Premenopausal symptoms, was referred to BISCUIT FACTORY WORKER for further evaluation and also to get a Pap smear check Neck mass large 4-5 cm palpable mass in the base of the left side of the neck nontender most likely lipoma will get an ultrasound and referred to a surgeon as patient reports it is causing discomfort 08/17/2024 Strain of muscle, fascia and tendon [...] counting. Patient was also advised to use kzee-czo-mnkbddg vitamin D3 supplements and multivitamins. Pharmacotherapy. Patient [...] needed will do a referral to a psychologist/psychi atrist. Bariatric surgery. Different procedures discussed with the [...] loss and psych intervention for weight loss. 09/22/2024 Encounter for screening mammogram for malignant neoplasm of breast (ICD-10 - Z12.31) Isabel is 44-year-old lady with no known medical history, obesity is here today for annual physical examination. Plan as follows: Hypertension. Blood pressure is well controlled. Continue on amlodipine 2.5 mg. Advised on reducing salt intake, increase hydration, weight loss and exercises have been discussed A recent comp and microalbumin are within normal limit. Normal kidney, liver function and electrolytes. She is on the right medications EKG is done in the office today with heart rate of 81bpm, No ST elevation or depression, no BBB. normal interval Hyperlipidemia. She was started recently on atorvastatin 20 mg and will start on Zetia for a concer of high triglyceride. Will repeat panel in 4-6 weeks. Diet modification discussed. Elevated ALT most likely in the setting of fatty liver disease but will obtain U/S of the liver. Morbid obesity: she lost 6lbs since the last visit. She recently had weight consultation, she will be checking with her insurance on medication coverage, a list of medication has been provided. She has an upcoming appt for WM. As for now, continue with diet modification and excercising. Fatigue: Recent CBC is normal. She admits to snoring and apneic episode. Whitetop score of 12, Stop BANG score of 5. Will refer to sleep medicine. Will also check for TSH and vitamin D. I have also discussed with patient that poor nutrition and lack of physical activity, lack of sleep, starting on a new antihypertensive medication also contribute to feeling fatigued. Vision Recommend to touch base with examiner of currency Dermatology. No suspicious lesions at this point Dental screening every 6 months Recent blood work has been reviewed with the patient and questions have been answered PHQ-9 of 12: Admits to anxiety related to work, however managed without pharmacotherapy. No SI. Screening for breast cancer: Ordered Mammogram. Declines vaccinations. General concerns have been discussed I have rendered the services for this patient under direct supervision of Dr. Sandra, who did not see the patient but was available upon request Premenopausal symptoms, was referred to BISCUIT FACTORY WORKER for further evaluation and also to get a Pap smear check Plan Of Treatment Pending Test Test Name Order Date X ray : Chest 08/28/2024 Ultrasound : Abdomen 09/22/2024 X ray : Thoracic and lumbar 08/17/2024 MAMMOGRAM, SCREENING 09/22/2024 CT Chest WO 07/31/2024 US Soft Tissue Head Neck 07/31/2024 Vitamin D, [id number] 09/22/2024 TSH+Free [id number] 09/22/2024 Next Appt Details Provider Name:LINCOLN SANDRA , 09/28/2024 01:45:00 PM, [address] [facility] [address], [place], [address], Provider Name:Mikellarry Fuentesmisty sawyer, 03/27/2025 01:00:00 PM, [address] [facility] [address], [place], [address], Insurance Providers Payer Name Payer Address Payer Phone Subscriber Number Group Number Insured Name Patient Relationship to Insured Coverage Start Date Coverage End Date [employer] [place] [address] [place] [phone] [id number] Isabel Ray Self - patient is the insured Medical (General) History Medical History History ICD Code HTN HLD Surgical History Surgery Date(Month/Year) status post cholecystectomy
--- OUTSIDE RECORDS SUMMARY | 2024-09-26 12:40 | XMS_ITS | Clinical Summary ---
Author Organization [address] [place] [address] [place] [id number] Phone Care Team Providers Care Director Of Sales Name Role Phone Nehemias Finney MD Primary Care Provider [phone] Allergies Active Allergy Reactions Criticality Noted Date Comments Pollen Extracts 09/10/2016 Medications ibuprofen (ADVIL,MOTRIN) 200 mg tablet Take 1 tablet (200 mg total) by mouth every 6 (six) hours if needed. Active naproxen (NAPROSYN) 500 mg tablet Take 1 tablet (500 mg total) by mouth. 09/23/2021 Active Active Problems Problem Noted Date Diagnosed Date Lumbar disc herniation 05/07/2020 Severe obesity (BMI 35.0-39. 9) with comorbidity ([facility] V24, [facility] V28) 04/28/2019 ZANE positive 02/27/2015 Chronic constipation 10/18/2013 H. pylori infection 10/18/2013 Major depression 10/18/2013 DDD (degenerative disc disease), lumbar 07/09/19 13 Vitamin D deficiency 05/31/2012 Low back pain radiating to right leg 07/29/2010 S/P cholecystectomy 11/08/2009 Anxiety 08/22/2008 Epigastric pain 08/22/2008 Immunizations Name Administration Dates Next Due Tdap Tetanus diptheria acell ular pertussis (Boostrix; Adacel) 7yo and older 12/19/2012 Surgical History Surgery Date Site/Laterality Comments CHOLECYSTECTOMY PROCEDURE: HISTORICAL CHOLECYSTECTOMY; COMMENT: 2009 Medical History Medical History Date Comments Obesity DX:Obesity Family History Medical History Relation Name Comments No Known Problems Brother No Known Problems Father No Known Problems Maternal Grandfather No Known Problems Maternal Grandmother Arthritis Mother Depression Mother Hypertension Mother No Known Problems Paternal Grandfather No Known Problems Paternal Grandmother No Known Problems Sister Relation Name Status Comments Brother Alive Father Alive not known Maternal Grandfather Maternal Grandmother Alive Mother Alive depression, dm, high cholesterol, TEJAS Paternal Grandfather Paternal Grandmother Sister Alive Son 1 Alive Son 2 Alive Son 3 Alive asthma Social History Tobacco Use Types Packs/Day Years Used Date Smoking Tobacco: Former Cigarettes Q uit: 11/27/2014 Smokeless Tobacco: Former Alcohol Use Standard Drinks/Week Comments No 0 (1 standard drink = 0.6 oz pur e alcohol) Comments Unknown Sex and Gender Information Value Date Recorded Sex Assigned at Not on file Legal Sex Female 5:17 AM EST Gender Identity Not on file Sexual Orientation Not on file Obstetrics History Last Filed Vital Signs Vital Sign Reading Time Taken Comments Blood Pressure 119/67 10/08/2023 9:51 AM EDT Pulse 78 10/08/2023 9:51 AM EDT Temperature - - Respiratory Rate - - Oxygen Saturation - - Inhaled Oxygen Concentration - - Weight 120 kg (264 lb) 10/08/2023 9:51 AM EDT Height 167.6 cm (5' 6 ) 01/28/2022 1:42 PM EDT Body Mass Index 42.61 01/28/2022 1:42 PM EDT Plan of Treatment Health Maintenance Due Date Last Done Comments Breast Cancer Screening 1980 Hepatitis B Vaccines (1 of 3 - 19+ 3-dose series) 02/05/1999 Cholesterol Screening (Lipid Panel) 03/07/2022 Depression Screening 03/07/2022 Social Influencers of Health Screening 03/07/2022 DTaP,Tdap,and Td Vaccines (2 - Td or Tdap) 12/19/2022 12/19/2012 COVID-19 Vaccine (2023-2 5 season) 2023 Influenza Vaccine (Season Ended) 2024 Cervical Cancer Screening: HPV 01/28/2027 01/28/2022 HIV Screening Completed 10/08/2023, 10/08/2023 Hepatitis C Screening Completed 10/08/2023 HIB Vaccines Aged Out No longer eligi ble based on patient's age to complete this topic HPV Vaccines Aged Out No longer eligi ble based on patient's age to complete this topic Hepatitis A Vaccines Aged Out No long er eligible based on patient's age to complete this topic IPV Vaccines Aged Out No longer eligi ble based on patient's age to complete this topic MMR Vaccines Aged Out No longer eligi ble based on patient's age to complete this topic Meningococcal ACWY Vaccine Aged Out N o longer eligible based on patient's age to complete this topic Meningococcal B Vaccine Aged Out No l onger eligible based on patient's age to complete this topic Pneumococcal Vaccine: Pediatrics (0 to 5 Years) and At-Risk Patients (6 to 64 Years) Aged Out No longer eligible b ased on patient's age to complete this topic RSV Immunization Patients Under 20 months Aged Out No longer eligible b ased on patient's age to complete this topic Varicella Vaccines Aged Out No longer eligible based on patient's age to complete this topic Procedures Procedure Name Priority Date/Time Associated Diagnosis Comments HEPATITIS C SCREENING Routine 10/08/2023 HIV SCREENING Routine 10/08/2023 HPV Routine 01/28/2022 from Last 3 Months or Most Recently Relevant to Health Maintenance Results * HIV Screening (10/08/2023) Pathologist [facility] HIV Screening abstracted [facility] Provider HEALTH MAINTENANCE Final Result * Hepatitis C Screening (10/08/2023) Pathologist [facility] Hepatitis C Screening abstracted [facility] Provider HEALTH MAINTENANCE Final Result * Cervical Cancer Screening: HPV (01/28/2022) Pathologist [facility] Cervical Cancer Screening: HPV abstracted, negative Historical Provider HEALTH MAINTENANCE Final Result from Last 3 Months or Most Recently Relevant to Health Maintenance Care Teams Director Of Sales Relationship Specialty Start Date End Date Nehemias Finney MD [address] [place] [address] PCP - General Internal Medicine 08/21/21
== END 2024-09-26 11:26 | disposition home or self-care (01) ==
LOC: HO.MS 11:25
PROVIDERS: Visit Provider Surgery
PROC: (CPT 11424; principal; 2024-09-26 11:00)
DX: L72.11 Pilar cyst (principal); L72.0 Epidermal cyst
CPT/HCPCS: 11424; 88304; J2004

== ENCOUNTER → 2024-09-26 11:25 | Outpatient (BNV) | payer OTHER, SELFPAY | PROVIDERS: Visit Provider Surgery | DX: L72.0 Epidermal cyst (principal) | CPT/HCPCS: 11424 ==

== ENCOUNTER 2024-10-10 09:32 | Outpatient (AMB) | payer OTHER, SELFPAY ==
--- NOTE | 2024-10-10 09:50 | A.OFFVIS_ITS ---
Vital Signs 3 10/10/24 09:52 Height 5 ft 6 in Weight 256 lb BMI 41.3 BP 137/89 Blood Pressure Location Lt brachial Position Sitting Pulse 79 Intake Visit Reasons: s/p Excision pilar cyst posterior neck Intake Note: Patient is seen in office for post op assessment post Excision of epidermal inclusion cyst posterior neck. Pt c/o: denies any concerns surgery:09/26/24 Clothing Presser Required: No Accompanied by: Self / Same As Patient Allergies No Known Allergies Allergy (Verified 10/10/24 09:53) HPI Comments Details: 44-year-old female patient returning 1 week following excision of a epidermal inclusion cyst of the posterior neck. She tolerated the procedure well but did have some soreness following the procedure. Pathology confirmed an epidermal inclusion cyst. [facility] Medical History Pilar cyst of scalp High blood pressure High cholesterol Surgical History Hx of excision of mass (09/26/24) Hx laparoscopic cholecystectomy Social History Alcohol intake: current Alcohol intake frequency: holidays/special occasions only Patient Tobacco Use Status: Never used Tobacco Review of Systems Const All systems reviewed & are unremarkable except as noted in HPI and below Physical Exam Vital Signs: Last Vital Signs Pulse 79 10/10/24 09:52 BP 137/89 10/10/24 09:52 BMI result Body Mass Index 41.3 Const General: comfortable Nutritional Appearance: well nourished Orientation/consciousness: patient oriented x3 Neck Neck images: 2 1. Excision site in the posterior left scalp is clean, dry, and intact without redness or discharge. Sutures removed and wounds found to be well healed. Resp Effort & Inspection: normal respiratory effort Skin Other: Warm, dry, no rash Neuro General: patient oriented x3 Extrem Other: No edema General: No edema Assessment & Plan Assessment & Plan (1) Pilar cyst of scalp: Code(s): L72.11 - Pilar cyst Category: Medical Plan 44-year-old female patient status post excision of an epidermal inclusion cyst of the posterior left scalp. She tolerated the procedure well and her wounds are healing nicely. She should follow up as needed. Coding Level of Care Code Global (61998) Diagnoses Pilar cyst of scalp L72.11
[2024-10-10 09:52] VITALS: BP 137/89; PULSE 79; BMI 41.3
--- OUTSIDE RECORDS SUMMARY | 2024-10-10 10:09 | XMS_ITS | Patient Health Record ---
Author Organization [facility] Address [address] [place] [address] Care Team Providers Care Manufacturing Sr Engineer Name Role Phone LINCOLN SANDRA Primary Care Provider Margaret Lorenzana Unavailable [phone] Ema Dixon Unavailable [phone] Allergies No Known Allergies Results Component Value Reference Range Notes Comp. Metabolic Panel [id number] Reviewed date:08/02/2024 07:32:09 AM Interpretation: Performing Lab:[facility], [address] [facility], Phone - [phone], Director - MDJodry Notes/Report: Glucose 93 70-99 [...] 0-40 IU/L Lipid Panel With LDL/HDL Rat [id number] Reviewed date:08/02/2024 07:31:47 AM Interpretation: Performing Lab:[facility], [address] [facility], [place], Phone - [phone], Director - MDJodry Notes/Report: Cholesterol, Total 298 100-199 mg/dL Triglycerides 413 0-149 mg/dL HDL Cholesterol 41 >39 mg/dL VLDL Cholesterol Michael 82 5-40 mg/dL LDL Chol Calc ([facility]) 175 0-99 mg/dL LDL Calc Comment: Consider evaluating for Familial Hypercholesterolemia(FH), if clinically indicated. LDL/HDL Ratio 4.3 0.0-3.2 ratio LDL/HDL Ratio Men Women 1/2 Avg.Risk 1.0 1.5 Avg.Risk 3.6 3.2 2X Avg.Risk 6.2 5.0 3X Avg.Risk 8.0 6.1 Albumin/Creatinine Ratio,Uri [id number] Reviewed date:08/02/2024 07:32:03 AM Interpretation: Performing Lab:[facility], [address] [place] [address], [place], Phone - [phone], Director - MDJodry Notes/Report: Creatinine, Urine 229.9 Not Estab. mg/dL Albumin, Urine 25.8 Not Estab. ug/mL Alb/Creat Ratio 11 0-29 mg/g creat Normal: 0 - 29 Moderately increased: 30 - 300 Severely increased: >300 CBC with Diff, Platelet, NLR [id number] Reviewed date:08/02/2024 07:31:54 AM Interpretation: Performing Lab:[facility], [address] [facility], [place], Phone - [phone], Director - MDJoy Notes/Report: WBC 6.2 3.4-10.8 [...] al and perimenopausal disorder (N95.9) Referral Organization [facility] Referring Provider First Name Margaret Referring Provider Last Name Salomón Referring Provider Speciality [facility] Referred Provider Specialty Optical Glass Inspector General Notes Please call the farooq ent to schedule the appointment, [facility] Ribber- [phone] Charmain 08/07/2024 04:22:45 PM > Referral Priority Routine Reason large neck lipoma Please evaluate and treat Diagnosis 1 Localized swelling, mass and lump, neck (R22.1) Referral Organization [facility] Referring Provider First Name Margaret Referring Provider Last Name Salomón Referring Provider Speciality Internal edicine Referred Provider Specialty Surgery General Notes Please call the farooq ent to schedule the appointment, [facility] General Surgery. Please contact them at [phone], Kanwal Ramirez 08/07/2024 04:16:02 PM > Referral Priority Routine Reason snoring and daytime fatigue Diagnosis 1 Snoring (R06.83) Diagnosis 2 Somnolence (R40.0) Referral Organization [facility] Referring Provider First Name LINCOLN Referring Provider Last Name JOCY Referring Provider Speciality Internal edicine Referred Provider Specialty Sleep Medici ne General Notes Please call the farooq ent to schedule the appointment, [facility]. Please contact them at [phone] Charmain 08/17/2024 04:38:30 PM > Referral Priority Routine Reason STOP BANG of 5, Epwo rth score of 12 Please evaluate and treat Diagnosis 1 Fatigue, unspecified type (R53.83) Referral Organization [facility] Referring Provider First Name Ema Referring Provider Last Name Destiny Referred Provider Specialty Sleep Medici ne General Notes Please call the farooq ent to schedule the appointment, Encounter created and SMS sent to the pt.JamesSengin 09/25/2024 04:02:41 PM > Referral Priority Routine Medications Medication SIG (Take, Route, Frequency, Duration) Notes Start Date End Date Status Zepbound 2.5 MG/0.5ML 0.5 mL Subcutaneou s WEEKLY; Duration: 30 days 09/28/2024 Active Ezetimibe 10 MG 1 tablet Orally Once a day; Duration: 90 days 09/22/2024 Active amLODIPine Besylate 2.5 MG 1 tablet Oral ly Once a day; Duration: 30 days 08/17/2024 Active Atorvastatin Calcium 20 MG 1 tablet Oral ly Once a day; Duration: 30 days 08/01/2024 Active Problems Problem Type SNOMED Code ICD Code Onset Dates Problem Status W/U Status Risk Notes Problem Morbid obesity (disorder) (293051410) Morbid (severe) obesity due to excess calories (E66.01) Active confirmed Problem Mixed hyperlipidemia (436150802) Mixed hyperlipidemia (E78.2) Active confirmed Problem Hyperlipidemia (83883928) Hyperlipidemia, unspecified (E78.5) Active confirmed Problem Fatty liver (001218389) Fatty (change of) liver, not elsewhere classified (K76.0) Active confirmed Problem Unspecified menopausal and perimenopausal disorder (N95.9) Active confirmed Problem Somnolence (45462943) Somnolence (R40.0) Active confirmed Problem Essential hypertension (37125538) HTN (hypertension), benign (I10) Active confirmed Vital Signs Heart Rate 93 /min 09/28/2024 Temperature 95.6 degrees Fahrenheit 09/28/2024 Oximetry 97 % 09/28/2024 Blood pressure diastolic 72 mm Hg 09/28/2024 Height 5'6'' in 09/28/2024 Blood pressure systolic 120 mm Hg 09/28/2024 Weight 258.1 lbs 09/28/2024 BMI 41.65 kg/m2 09/28/2024 Encounters Encounter Location Date Provider Diagnosis [address] [place] [address] 07/31/2024 Aroosa Alam Hyperlipidemia, unspecified E78.5 ; HTN (hypertension), benign I10 ; Localized swelling, mass and lump, neck R22.1 and Chest pain on breathing R07.[address] [place] [address] 08/17/2024 STARK GUL Morbid (severe) obes ity due to excess calories E66.01 ; Dietary counseling and surveillance Z71.3 ; Mixed hyperlipidemia E78.2 ; Fatty (change of) liver, not elsewhere classified K76.0 ; HTN (hypertension), benign I10 and Strain of muscle, fascia and tendon of lower back, initial encounter S39.012A [address] [place] [address] 09/22/2024 Ghadeer Mazloum Hyperlipidemia, unspecified E78.5 ; Annual visit for general adult medical examination without abnormal findings Z00.00 ; Elevation of levels of liver transaminase levels R74.01 ; HTN (hypertension), benign I10 ; Fatigue, unspecified type R53.83 and Encounter for screening mammogram for malignant neoplasm of breast Z12.[address] [place] [address] 09/28/2024 STARK GUL Morbid (severe) obes ity due to excess calories E66.01 and Dietary counseling and surveillance Z71.[address] [place] [address] 08/01/2024 STARK GUL Hyperlipidemia, unspecified E78.[address] [place] [address] 08/11/[address] [place] [address] 08/11/[address] [place] [address] 08/18/[address] [place] [address] 08/24/2024 Margaret Lorenzana [address] [place] [address] 08/25/2024 Ema Dixon [address] [place] [address] 08/28/2024 Margaret Lorenzana Chest pain on breath ing R07.1 and Shortness of breath R06.[address] [place] [address] 09/06/[address] [place] [address] 09/25/[address] [place] [address] 09/28/2024 Ema Dixon Assessments Encounter Date Diagnosis (ICD Code) Assessment [...] counting. Patient was also advised to use mhki-wdv-swjckgb vitamin D3 supplements and multivitamins. Pharmacotherapy. Patient [...] pleural effusion. Premenopausal symptoms, was referred to [facility]TI[facility] AUTOMOBILES REPAIRER for further evaluation and also to get [...] counting. Patient was also advised to use jzpi-ehd-ikeertf vitamin D3 supplements and multivitamins. Pharmacotherapy. Patient [...] provided. She has an upcoming appt for [employer]. As for now, continue with diet modification and excercising. Fatigue: Recent CBC is normal. She admits to snoring and apneic episode. [place] score of 12, Stop BANG score of 5. Will refer to sleep medicine. Will also check for TSH and vitamin D. I have also discussed with patient that poor nutrition and lack of physical activity, lack of sleep, starting on a new antihypertensive medication also contribute to feeling fatigued. Vision Recommend to touch base with certified solid waste facility operator Dermatology. No suspicious lesions at this point [...] upon request Premenopausal symptoms, was referred to ANTIQUE AUTOMOBILES REPAIRER for further evaluation and also to get [...] She admits to snoring and apneic episode. [place] score of 12, Stop BANG score of 5. Will refer to sleep medicine. Will also check for TSH and vitamin D. I have also discussed with patient that poor nutrition and lack of physical activity, lack of sleep, starting on a new antihypertensive medication also contribute to feeling fatigued. Vision Recommend to touch base with certified solid waste facility operator Dermatology. No suspicious lesions at this point [...] upon request Premenopausal symptoms, was referred to [employer]TIQUE AUTOMOBILES REPAIRER for further evaluation and also to get a Pap smear check 09/28/2024 Morbid (severe) obesity due to excess calories (ICD-10 - E66.01) Isabel is 44 years old lady with hypertension, hyperlipidemia is here today for medical weight management. She has hypertension, hyperlipidemia and morbid obesity. She is an appropriate candidate for GLP 1/ Zepbound considering her comorbidities.Plan is as follows. Dietary recommendations. Food recall was done today and patient advised to be on low calorie, low carbohydrate diet. Restrict calories to less than 1500 kcal in 24 hours. Low glycemic index foods and encouraged. Meal replacements were recommended. Advised to use nfle-rpr-eqzemhn multivitamins and vitamin D. Advised to use calorie counter and adhere to portion control. Monthly goal is to lose 4-6 pounds Pharmacotherapy.She is started on Zepbound 2.5 mg every weekly. Side effects explained to the patient. Goal is to lose 3-5% of body weight in 3 months. Exercise. Patient encouraged to increase frequency, intensity and duration of exercise. Encouraged to burn at least 250-500 kcal in one session. Also encouraged to do weight training Assess. Different risk factors discussed with the patient and addressed Advise. Patient was given clear And specific advise that she will comply with Low-calorie diet and try not to exceed more than 1300 kcal in 24 hours. Agree. Mutually agreed to work together to achieve appropriate goals Assist. Motivational interviewing done. Arrange. Follow-up appointment arranged. Counseling. 20 minutes spent Face to face with the patient more than 50% of time was spent counseling 09/28/2024 Dietary counseling and surveillance (ICD-10 - Z71.3) Isabel is 44 years old lady with hypertension, hyperlipidemia is here today for medical weight management. She has hypertension, hyperlipidemia and morbid obesity. She is an appropriate candidate for GLP 1/ Zepbound considering her comorbidities.Plan is as follows. Dietary recommendations. Food recall was done today and patient advised to be on low calorie, low carbohydrate diet. Restrict calories to less than 1500 kcal in 24 hours. Low glycemic index foods and encouraged. Meal replacements were recommended. Advised to use pkxy-uhz-jdauwwu multivitamins and vitamin D. Advised to use calorie counter and adhere to portion control. Monthly goal is to lose 4-6 pounds Pharmacotherapy.She is started on Zepbound 2.5 mg every weekly. Side effects explained to the patient. Goal is to lose 3-5% of body weight in 3 months. Exercise. Patient encouraged to increase frequency, intensity and duration of exercise. Encouraged to burn at least 250-500 kcal in one session. Also encouraged to do weight training Assess. Different risk factors discussed with the patient and addressed Advise. Patient was given clear And specific advise that she will comply with Low-calorie diet and try not to exceed more than 1300 kcal in 24 hours. Agree. Mutually agreed to work together to achieve appropriate goals Assist. Motivational interviewing done. Arrange. Follow-up appointment arranged. Counseling. 20 minutes spent Face to face with the patient more than 50% of time was spent counseling 08/28/2024 Shortness of breath (ICD-10 - R06.02) [...] She admits to snoring and apneic episode. [place] score of 12, Stop BANG score of 5. Will refer to sleep medicine. Will also check for TSH and vitamin D. I have also discussed with patient that poor nutrition and lack of physical activity, lack of sleep, starting on a new antihypertensive medication also contribute to feeling fatigued. Vision Recommend to touch base with certified solid waste facility operator Dermatology. No suspicious lesions at this point [...] upon request Premenopausal symptoms, was referred to ANTIQUE AUTOMOBILES REPAIRER for further evaluation and also to get [...] pleural effusion. Premenopausal symptoms, was referred to ANTIQUE AUTOMOBILES REPAIRER for further evaluation and also to get [...] counting. Patient was also advised to use rwgx-clq-zczggmn vitamin D3 supplements and multivitamins. Pharmacotherapy. Patient [...] counting. Patient was also advised to use kncy-psh-fabllzz vitamin D3 supplements and multivitamins. Pharmacotherapy. Patient [...] pleural effusion. Premenopausal symptoms, was referred to ANTIQUE AUTOMOBILES REPAIRER for further evaluation and also to get [...] She admits to snoring and apneic episode. [place] score of 12, Stop BANG score of 5. Will refer to sleep medicine. Will also check for TSH and vitamin D. I have also discussed with patient that poor nutrition and lack of physical activity, lack of sleep, starting on a new antihypertensive medication also contribute to feeling fatigued. Vision Recommend to touch base with certified solid waste facility operator Dermatology. No suspicious lesions at this point [...] upon request Premenopausal symptoms, was referred to ANTIQUE AUTOMOBILES REPAIRER for further evaluation and also to get [...] She admits to snoring and apneic episode. [place] score of 12, Stop BANG score of 5. Will refer to sleep medicine. Will also check for TSH and vitamin D. I have also discussed with patient that poor nutrition and lack of physical activity, lack of sleep, starting on a new antihypertensive medication also contribute to feeling fatigued. Vision Recommend to touch base with certified solid waste facility operator Dermatology. No suspicious lesions at this point [...] upon request Premenopausal symptoms, was referred to ANTIQUE AUTOMOBILES REPAIRER for further evaluation and also to get [...] counting. Patient was also advised to use uppz-cbz-cehzuoa vitamin D3 supplements and multivitamins. Pharmacotherapy. Patient [...] pleural effusion. Premenopausal symptoms, was referred to ANTIQUE AUTOMOBILES REPAIRER for further evaluation and also to get [...] counting. Patient was also advised to use rrqx-uhb-zdbiscv vitamin D3 supplements and multivitamins. Pharmacotherapy. Patient [...] She admits to snoring and apneic episode. [place] score of 12, Stop BANG score of 5. Will refer to sleep medicine. Will also check for TSH and vitamin D. I have also discussed with patient that poor nutrition and lack of physical activity, lack of sleep, starting on a new antihypertensive medication also contribute to feeling fatigued. Vision Recommend to touch base with certified solid waste facility operator Dermatology. No suspicious lesions at this point [...] upon request Premenopausal symptoms, was referred to ANTIQUE AUTOMOBILES REPAIRER for further evaluation and also to get a Pap smear check Plan Of Treatment Pending Test Test Name Order Date X ray : Chest 08/28/2024 Ultrasound : Abdomen 09/22/2024 X ray : Thoracic and lumbar 08/17/2024 MAMMOGRAM, SCREENING 09/22/2024 CT Chest WO 07/31/2024 US Soft Tissue Head Neck 07/31/2024 Vitamin D, [id number] 09/22/2024 TSH+Free [id number] 09/22/2024 Next Appt Details Provider Name:Ema sawyer, 03/27/2025 01:00:00 PM, [address] [place] [address], [phone], Insurance Providers Payer Name Payer Address Payer Phone Subscriber Number Group Number Insured Name Patient Relationship to Insured Coverage Start Date Coverage End Date [facility] [address] [place] [id number] Isabel Ray Self - patient is the insured Medical (General) History Medical History History ICD Code HTN HLD Surgical History Surgery Date(Month/Year) status post cholecystectomy
--- OUTSIDE RECORDS SUMMARY | 2024-10-10 10:09 | XMS_ITS | Clinical Summary ---
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 9) with comorbidity ([facility] V24, [facility] V28) 04/28/2019 ZANE positive 02/27/2015 Chronic constipation [...] Vaccine (2023-2 5 season) 2023 Influenza Vaccine (#1) 2024 Cervical Cancer Screening: HPV 01/28/2027 01/28/2022 [...] 5 Years) and At-Risk Patients (6 to 49 Years) Aged Out No longer eligible b [...] Maintenance Results * HIV Screening (10/08/2023) Pathologist [facility] HIV Screening abstracted [facility] Provider HEALTH MAINTENANCE Final Result * Hepatitis C Screening (10/08/2023) Pathologist [facility] Hepatitis C Screening abstracted [facility] Provider HEALTH MAINTENANCE Final Result * Cervical Cancer Screening: HPV (01/28/2022) Pathologist [facility] Cervical Cancer Screening: HPV abstracted, negative Historical Provider HEALTH MAINTENANCE Final Result from Last 3 Months or Most Recently Relevant to Health Maintenance Care Teams Conditioning Machine Operator Relationship Specialty Start Date End Date Nehemias Finney MD [address] [place] [address] PCP - General Internal Medicine 08/21/21
== END 2024-10-10 10:02 | disposition home or self-care (01) ==
LOC: HO.HGS 09:33
PROVIDERS: PCP Hospitalist; Visit Provider Surgery
DX: L72.11 Pilar cyst (principal)
CPT/HCPCS: 99024

== ENCOUNTER → 2025-01-17 09:32 | Outpatient (BNVA) | payer SELFPAY | PROVIDERS: Visit Provider Physician Assistant | DX: Z02.79 Encounter for issue of other medical certificate (principal) ==